=== PATIENT | male | born 1980 | race Asian ===

== ENCOUNTER 2018-10-23 01:40 | Inpatient (IN) | payer OTHER ==
[2018-10-23] VITALS (11 sets, daily range): BP systolic 96–131; BP diastolic 62–86
[~2018-10-23] VITALS: Ht 170.2 cm; Wt 99.3 kg
[2018-10-23] MEDS ORDERED: LIDOCAINE MPF 1% 5 ML VIAL ONE (07:35)
[2018-10-23] MEDS ORDERED: ROCURONIUM BROM 10 MG/ML 10 ML ONE (07:35)
[2018-10-23] MEDS ORDERED: SUGAMMADEX SOD 200 MG/2 ML SDV ONE (07:35)
[2018-10-23] MEDS ORDERED: PROPOFOL EMUL(*) 10MG/ML 20 ML 20 ML ONE (07:35)
[2018-10-23] MEDS ORDERED: DEXAMETHASONE SOD 4 MG/ML VIAL ONE (07:35)
[2018-10-23] MEDS ORDERED: ONDANSETRON 4 MG/2 ML VIAL ONE (07:35)
[2018-10-23] MEDS ORDERED: fentaNYL CITR 250 MCG/5 ML AMP ONE (07:35)
[2018-10-23] MEDS ORDERED: HYDROmorphone HCL 2 MG/ML SDV ONE (07:36)
[2018-10-23] MEDS ORDERED: KETAMINE HCL-NS 50 MG/5 ML SYR ONE (07:36)
[2018-10-23] MEDS ORDERED: THROMBIN (BOVINE) 20,000 UNIT VIAL ONE (08:58)
[2018-10-23] MEDS ORDERED: FAMOTIDINE 20 MG TAB PO ONE (10:00)
[2018-10-23] MEDS ORDERED: ceFAZolin(*) 2GM/D5W 50ML 50 ML IVPB ONE (10:00)
[2018-10-23] MEDS ORDERED: NORMOSOL R SOLN(*) 1000 ML BAG 1,000 ML IV PRN (10:00)
[2018-10-23] MEDS ORDERED: ACETAMINOPHEN 500 MG TAB PO ONE (10:00)
[2018-10-23] MEDS ORDERED: MIDAZOLAM 2 MG/2 ML VIAL IVP PRN (10:00)
[2018-10-23] MEDS ORDERED: LIDOCAINE/SOD BICARB 8.4% SYR ID ONE (10:00)
[2018-10-23] MEDS ORDERED: PREGABALIN 150 MG CAPSULE PO ONE (10:00)
[2018-10-23] MEDS ORDERED: PROPOFOL(*)1000 MG/100 ML VIAL 100 ML ONE (10:37)
[2018-10-23] MEDS ORDERED: SUCCINYLCHOL CHL 100MG/5ML SYR IVP ONE (12:06)
[2018-10-23] MEDS ORDERED: ROPIVACAINE 0.2% 20 ML VIAL ONE (13:54)
--- NOTE | 2018-10-23 14:07 | RADIOLOGY IMAGING REPORT ---
[place] [facility] [place] David El : 1980 MR: [id number] V: [id number] EXAM DATE: ORDERING PHYSICIAN: PATEL ANDERSON TECHNOLOGIST: Location: [facility] Patient: David El : 1980 Visit/Account:[id number] Date of Sevice: 10/23/2018 Technique: C-ARM FLUORO 1 HR HISTORY: L5-S1 FUSION Comparison studies: None FINDINGS: Operative imaging was obtained of the lower lumbar spine. An interbody spacer is noted at L5-S1. Air Kerma: 11.3 mGy IMPRESSION: 1. Operative imaging as above. Please see procedural report for complete details. Report Dictated By: Jose R Klein DO at 10/23/2018 1:58 PM Report E-Signed By: Jose R Klein DO at 10/23/2018 2:02 PM WSN:[id number]
--- NOTE | 2018-10-23 14:21 | OPERATIVE REPORT 1 ---
EVENT DATE: October 23, 2018 SURGEON: Jan Wick MD ANESTHESIOLOGIST: Connor Martin MD ANESTHESIA: General endotracheal. APPROACH SURGEON: Dr. Fuentes OUTGOING INSPECTOR: PRAVEENA Kwong, BELT MEASURER PREOPERATIVE DIAGNOSIS L5-S1 isthmic spondylolisthesis with severe low back pain. POSTOPERATIVE DIAGNOSIS L5-S1 isthmic spondylolisthesis with severe low back pain. PROCEDURE PERFORMED L5-S1 anterior lumbar interbody fusion. IV FLUIDS 1700 cc's. ESTIMATED BLOOD LOSS 40 cc's. IMPLANTS Size regular 12 mm high, 12-degree lordotic titanium interbody spacer from [employer] and 25 mm fixation screws from [employer] x3 plus a 10 cc ViBone. SPECIMENS None. DRAINS None. COMPLICATIONS None. DISPOSITION Post-anesthesia care unit. INDICATIONS FOR SURGERY Mr. El is a 38-year old male who presented with a complaint of low back pain. He has had symptoms for the last 20+ years which waxed and waned but more recently became severe about a year ago and failed to improve with physical therapy medication, activity modification, etc. The physical examination was normal with no strength or sensory deficits. He had increased pain with extension of the thoracolumbar spine. His light touch sensation was intact and deep tendon reflexes were 2+ in bilateral patellar tendons and 1+ in bilateral Achilles tendons. Imaging studies showed disk height loss and anterolisthesis of L5 on S1 with bilateral pars interarticularis defects at L5. The MRI showed well-preserved disks at every level except for L5-S1, where there was disk desiccation and disk height loss. Secondary to ongoing pain and failure to improve with nonsurgical care, we elected to send Mr. El for bilateral pars interarticularis injections. These injections ultimately gave him excellent relief of his back pain but only for a brief period of time. Secondary to failure of nonsurgical care, he was offered and elected to undergo L5-S1 anterior lumbar interbody fusion. Prior to surgery, I explained in detail to the patient the possible risks of surgery. These risks include bleeding, infection, damage to bowel, damage to the great vessels, spinal fluid leak, nerve root injury, persistent and/or worsening grade, retrograde ejaculation and other sexual dysfunction, , blindness, autonomic nervous system dysfunction and other unforeseen medical and surgical complications. An understanding that in general spinal surgery is more predictive at improving extremity discomfort than axial spine pain was stressed. DESCRIPTION OF PROCEDURE On the date of surgery, the patient was met in the preoperative hold area and all questions were answered. The operative site was identified and marked by myself. The patient was then brought in good condition to the operating room and after succumbing to anesthesia was positioned in the supine position on a flat Kole table. All bony protuberances and soft tissues were well padded in the standard fashion. Preoperative antibiotics were administered according to the appropriate timing schedule. Care was taken to maintain appropriate perfusion pressures during anesthesia. At the conclusion of the procedure, sponge and needle counts were correct x2. A final time-out was undertaken by members of the operating team to confirm correct patient, correct levels and correct surgery. The patient was then prepped and draped in the standard sterile fashion and Dr. Fuentes performed a standard anterior retroperitoneal approach to the L5-S1 level. Please refer to his dictation for a detailed description of that portion of the procedure. Once the disk space was exposed and we ensured we were at the correct level with a lateral radiograph, I used a knife to perform an anterior annulotomy of the L5-S1 disk. A sharp Keith elevator was then used to elevate the disk off the endplates, ensuring to strip all cartilaginous remnants from the endplates of L5 and S1. The majority of the disk was then removed on block and I then used a variety of curettes to further smooth and strip the vertebral endplates of any cartilaginous remnant. I ensured we had good bleeding bone across both surfaces and then we used the combination rasp trial device 13 mm in height and inserted it in the disk space. AP and lateral radiographs showed it to be the right size, the right lordosis and in good position. It was, therefore, withdrawn and the 13 mm, 12-degree lordotic size regular titanium implant from [employer] was selected. We packed this with ViBone and then impacted it into place in the L5- S1 interspace. Under fluoroscopic guidance, we then used the awl to penetrate the endplates through the integrated holes in the device and ultimately placed one balance wheel screw hole tapper into the S1 vertebral body and two screws up into the L5 vertebral body. Final radiographs were obtained that showed the device to be in excellent position both in the AP and lateral views. The wound was then irrigated with sterile saline solution. Retractors were withdrawn and the wound was closed in layers using a running Maxon for the linea alba and then an interrupted inverted suture for the subcutaneous tissue and then a running subcuticular skin stitch. Sponge and needle counts were correct x2. POSTOPERATIVE CARE PLAN The patient will remain in the hospital until he meets discharge criteria. He will follow up in my clinic in two weeks for a wound check and examination. [*] ALLYD
[2018-10-23] MEDS ORDERED: fentaNYL CITR 100 MCG/2 ML AMP ONE ×2 (14:30→14:53)
[2018-10-23] MEDS ORDERED: DIAZEPAM 5 MG TAB ONE (14:36)
[2018-10-23] MEDS ORDERED: LR(*) 1000 ML BAG 1,000 ML IV PRN (14:55)
[2018-10-23] MEDS ORDERED: HYDROmorphone HCL 2 MG/ML SDV IVP PRN (14:55)
[2018-10-23] MEDS ORDERED: ONDANSETRON 4 MG/2 ML VIAL IVP PRN (14:55)
[2018-10-23] MEDS ORDERED: ACETAMINOPHEN 500 MG TAB PO PRN (14:55)
[2018-10-23] MEDS ORDERED: BISACODYL 10 MG SUPP PR PRN (14:55)
[2018-10-23] MEDS ORDERED: oxyCODONE HCL 5 MG CAP PO PRN (14:55)
[2018-10-23] MEDS ORDERED: diphenhydrAMINE 25 MG CAP PO PRN (14:55)
[2018-10-23] MEDS ORDERED: ACETAMINOPHEN(*)1000 MG/100 ML 100 ML IVPB PRN (14:55)
[2018-10-23] MEDS ORDERED: FLUSH 10 ML SYR IVP PRN (14:55)
[2018-10-23] MEDS ORDERED: MAGNESIUM HYDROXIDE* 30ML UDCP PO PRN (14:55)
[2018-10-23] MEDS ORDERED: DIAZEPAM 5 MG TAB PO PRN (14:55)
[2018-10-23] MEDS ORDERED: BENZOCAINE/MENTHOL 1 EACH LOZG PO PRN (14:55)
--- NOTE | 2018-10-23 15:49 | Hospitalist Consultation ---
History of Present Illness Requesting Physician Dr. Wick Reason for Consult Medical Management Chief Complaint s/p lumbar fusion History of Present Illness He was admitted s/p lumbar fusion. It is reported the surgery went well and without complication. History Home Meds No Active Prescriptions or Reported Meds Allergies: Coded Allergies: No Known Drug Allergies (Unverified , 10/16/18) Patient History: Diabetes mellitus (DM) GRANDMOTHER FH: HTN (hypertension) GRANDMOTHER FH: [place] (myocardial infarction) GRANDMOTHER FH: stroke BROTHER OR SISTER Hx Smoking: Yes ([employer] SMOKER, QUIT 2010) Smoking Status: Former Smoker When Quit Tobacco?: 2010 Caffeine/Cups Per Day: NONE Hx Alcohol Use: Yes Hx Substance Use Disorder: No Social Drug Use: Never Review of Systems All Systems Reviewed/Normal: Yes, Except as Noted Exam Vital Signs Vital Signs Date Time Temp Pulse Resp B/P (MAP) Pulse Ox O2 Delivery O2 Flow Rate FiO2 10/23/18 15:30 82 12 93 10/23/18 09:23 97.0 127/79 (95) Room Air General Appearance: Alert, Awake, No Acute Distress, Afebrile Neuro: No Gross deficits Cardiovascular: Regular Rate and Rhythm Respiratory: No Respiratory Distress, Clear to Auscultation GI: Abd Soft and Non-Tender Psych: Alert & Oriented X3, Appropriate Mood & Affect Assessment and Plan Problems: (1) S/P lumbar fusion Status: Acute Assessment & Plan: Followed by Dr. Wick. He has no medical problems or medications. Hospitalist service will follow along for any medical needs. Venous Thromboembolism Antithrombotics Is Pt On Any Antithrombotics?: No Prophylaxis Tx Contraindicated Pharmacological Contraindicati: Surgical Contraindication JUSTIN QUIJANO LEAD SOFTWARE DEVELOPER Oct 23, 2018 15:49
[2018-10-23] MEDS: ceFAZolin(*) 2GM/D5W 50ML 50 ML IVPB SCH (20:27)
[2018-10-23] MEDS: DOCUSATE SODIUM 100 MG CAP PO SCH (20:27)
[2018-10-23] MEDS: APAP/HYDROCODONE 325/5 TAB PO PRN (20:28)
[2018-10-23] MEDS ORDERED: NS(*) 0.9% 250 ML BAG 250 ML ONE (20:29)
[2018-10-24] MEDS: APAP/HYDROCODONE 325/5 TAB PO PRN ×3 (01:11→08:06)
[2018-10-24 02:59] VITALS: BP 113/70
[2018-10-24] MEDS: ceFAZolin(*) 2GM/D5W 50ML 50 ML IVPB SCH (03:47)
[2018-10-24 07:45] VITALS: BP 122/76
[2018-10-24] MEDS: DOCUSATE SODIUM 100 MG CAP PO SCH (08:06)
--- NOTE | 2018-10-24 09:30 | NUR ---
Physical Therapy Impression PT eval completed and pt able to meet all goals with initial visit. Plan to d/c home with no needs and follow up with surgeon as scheduled. Physical Therapy Goals PT goals met with initial visit; no further visits planned. 1. Pt to be modified indep with bed mobility and sup<>sit 2. Pt to be modified indep with sit to/from stand 3. Pt to tolerate ambulation x 150' with least restrictive device and sats in safe range on room air. 4. Pt to complete up/down platform step x 2 reps with modified indep Patient's Goals
[2018-10-24] MEDS ORDERED: DIAZ-308 PO (09:34)
[2018-10-24] MEDS ORDERED: HYDR-385 PO (09:35)
[2018-10-24] MEDS ORDERED: DOCU240C84 PO (09:35)
[2018-10-24 10:30] VITALS: Ht 170.2 cm; Wt 99.3 kg
--- NOTE | 2018-10-24 11:06 | Hospitalist Progress Note ---
Subjective Progress Notes Subjective He was admitted after lumbar fusion. He has no complaints this morning. He had no acute events overnight. Patient Complains of: Cardiovascular: No: Chest Pain Respiratory: No: Shortness of Breath Physical Exam Vital Signs Date Time Temp Pulse Resp B/P (MAP) Pulse Ox O2 Delivery O2 Flow Rate FiO2 10/24/18 08:16 86 10/24/18 08:16 Room Air 10/24/18 07:45 98.7 92 16 122/76 (91) 1.0 Intake and Output 10/24/18 00:00 Intake Total 4300 ml Balance 4300 ml Intake Oral 300 ml IV Total 2000 ml Other 2000 ml # Voids 2 General Appearance: Alert, Awake, No Acute Distress, Afebrile Neuro: No Gross deficits Cardiovascular: Regular Rate and Rhythm Respiratory: No Respiratory Distress, Clear to Auscultation GI: Soft and Non-Tender Psych: Alert & Oriented X3, Appropriate Mood & Affect Assessment and Plan Problems: (1) S/P lumbar fusion Status: Acute Assessment & Plan: Followed by Dr. Wick. He has no medical problems or medications. Hospitalist service will follow along for any medical needs. Exam Sepsis Risk: No Definite Risk JUSTIN QUIJANO BELL TIER Oct 24, 2018 11:06
== END 2018-10-24 13:00 | disposition home or self-care (01) | DRG 460 ==
LOC: OR 01:40 → MED 16:23
PROVIDERS: ADMIT Orthopaedic Surgery; ATTEND Orthopaedic Surgery
PROC: 0ST40ZZ Resection of Lumbosacral Disc, Open Approach (ICD-10-PCS; 2018-10-23)
PROC: 0SG30A0 Fusion of Lumbosacral Joint with Interbody Fusion Device, Anterior Approach, Anterior Column, Open Approach (ICD-10-PCS; principal; 2018-10-23 12:06)
DX: M43.17 Spondylolisthesis, lumbosacral region (principal); Z87.891 Personal history of nicotine dependence
CPT/HCPCS: 36415; 76000; 86850; 86900; 86901; 95940; 97161; C1713; J0330; J0690; J1100; J1170; J2001; J2250; J2405; J2704; J2795; J3010; J3490; J7050